=== PATIENT | male | born 2000 | race American Indian/Alaskan Native ===

== ENCOUNTER 2019-07-30 11:39 | Emergency (ER) | payer OTHER ==
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
[2019-07-30 11:53] VITALS: BP 131/61
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
== END 2019-07-30 13:16 | disposition home or self-care (01) ==
LOC: ED 11:39
DX: S80.211A Abrasion, right knee, initial encounter (principal); S70.311A Abrasion, right thigh, initial encounter; V49.49XA Driver injured in collision with other motor vehicles in traffic accident, initial encounter; Y93.89 Activity, other specified; Y92.410 Unspecified street and highway as the place of occurrence of the external cause; Y99.8 Other external cause status